=== PATIENT | female | born 1945 ===

== ENCOUNTER 2024-01-03 06:00 | Outpatient (RCR) | payer MEDICARE, SELFPAY | END 2024-02-02 23:59 | disposition home or self-care (01) | LOC: MPT 06:00 | PROVIDERS: Visit Provider Student in an Organized Health Care Education/Training Program | DX: M25.552 Pain in left hip (principal) | CPT/HCPCS: 97110; 97116; 97162; 97530 ==

== ENCOUNTER 2024-02-03 06:00 | Outpatient (RCR) | payer MEDICARE, SELFPAY | END 2024-03-03 23:59 | disposition home or self-care (01) | LOC: MPT 06:00 | PROVIDERS: Visit Provider Student in an Organized Health Care Education/Training Program | DX: M25.552 Pain in left hip (principal) | CPT/HCPCS: 97110; 97112 ==

== ENCOUNTER 2024-03-04 06:00 | Outpatient (RCR) | payer MEDICARE, SELFPAY | END 2024-04-03 23:59 | disposition home or self-care (01) | LOC: MPT 06:00 | PROVIDERS: Visit Provider Student in an Organized Health Care Education/Training Program | DX: M25.552 Pain in left hip (principal) | CPT/HCPCS: 97110 ==

== ENCOUNTER 2024-09-02 05:00 | Outpatient (RCR) | payer MEDICARE, SELFPAY | END 2024-10-01 23:59 | disposition home or self-care (01) | LOC: MPT 05:00 | PROVIDERS: Visit Provider Physician Assistant | DX: Z47.1 Aftercare following joint replacement surgery (principal); Z96.642 Presence of left artificial hip joint; M54.9 Dorsalgia, unspecified | CPT/HCPCS: 97110; 97140; 97162; G0283 ==

== ENCOUNTER 2024-10-02 06:30 | Outpatient (RCR) | payer MEDICARE, SELFPAY | END 2024-11-01 23:59 | disposition home or self-care (01) | LOC: MPT 06:30 | PROVIDERS: Visit Provider Physician Assistant | DX: Z47.1 Aftercare following joint replacement surgery (principal); Z96.642 Presence of left artificial hip joint; M54.9 Dorsalgia, unspecified | CPT/HCPCS: 97110; G0283 ==

== ENCOUNTER 2024-11-02 05:00 | Outpatient (RCR) | payer MEDICARE, SELFPAY | END 2024-11-30 08:55 | disposition home or self-care (01) | LOC: MPT 05:00 | PROVIDERS: Visit Provider Physician Assistant | DX: Z47.1 Aftercare following joint replacement surgery (principal); Z96.642 Presence of left artificial hip joint; M54.9 Dorsalgia, unspecified | CPT/HCPCS: 97110; G0283 ==